=== PATIENT | female | born 1955 | race Caucasian/White ===

== ENCOUNTER 2024-02-17 04:34 | Emergency (ER) | payer OTHER, SELFPAY ==
[2024-02-17 04:38] VITALS: BP 145/82; PULSE 86; RESP 16; TEMP 36.3; O2SAT 95; BMI 40.7
--- NOTE | 2024-02-17 04:44 | ED_ITS ---
HPI - Chest Pain General Time Seen by Provider: 04:45 Date Seen: 02/17/24 Chief Complaint: Chest Pain Stated Complaint: Chest pressure Time Seen by Provider: 02/17/24 04:44 Source: patient, RN notes reviewed and old records reviewed Mode of arrival: ambulatory Limitations: no limitations History of Present Illness HPI narrative: 68-year-old female who comes in today with chest pain. The patient reports chest pressure in the middle of her chest that has been going on for 2 days. No radiation, no shortness of breath, no nausea vomiting. Pain is worse when she l ays down, not change with eating. Has been taking aspirin recently Related Data Previous Rx's ?Medication ?Instructions ?Recorded amoxicillin 875 mg-potassium 1 tab PO BID #20 tabs 07/13/22 clavulanate 125 mg tablet Allergies Allergy/AdvReac Type Severity Reaction Status Date / Time No Known Drug Allergies Allergy Verified 07/13/22 16:47 [facility] Medical History (Updated 07/13/22 @ 16:58 by Anthony Boswell MD) Acute sinusitis ?J01.90 - Acute sinusitis, unspecified (ICD-10) Social History Smoking Status: Never smoker Exam Narrative Exam Narrative: General: Well-developed and well-nourished, no acute distress Head: Atraumatic and normocephalic Eyes: Pupils are equal reactive, extraocular motions intact, conjunctiva clear ENT: External nose and ears are normal, posterior pharynx without erythema or exudate Neck: No midline cervical tenderness, full spontaneous range of motion the neck, trachea midline, no adenopathy Heart: Regular rate and rhythm no murmurs or thrills Lungs: Clear to auscultation bilaterally without wheezes or crackles Abdomen: Soft, nontender, nondistended with active bowel sounds Musculoskeletal: No tenderness, deformity, or edema Neurologic: Awake, alert, and oriented x3, no gross focal neurologic deficits, cranial nerves intact as tested Psych: Mood and affect are appropriate Skin: No rashes Const Vital Signs, click to edit/add: Vital Signs - 24 hr 02/17/24 04:38 02/17/24 05:12 Temperature 97.3 F L Pulse Rate [Left Pulse Oximeter] 86 73 Respiratory Rate 16 16 Blood Pressure [Right Upper Arm] 145/82 H 122/71 Pulse Oximetry 95 93 Oxygen Delivery Method Room Air Room Air Course Course ED Course: Patient seen and examined, prior records reviewed. Patient presents today with substernal chest pressure that has been going on for about 2 days. On exam here, patient appears comfortable, no abdominal or chest tenderness. EKG is reassuring, labs ordered. The EKG independently interpreted by me performed at 4:50 a.m. demonstrates normal sinus rhythm rate 83, no acute ST elevations or depressions, normal intervals, normal axis, QTC 425, WI 152. No prior for comparison. Reevaluation(s) Time of Reevaluation #1: 05:30 Reevaluation #1: Labs ordered and independently interpreted by me with the normal white blood cell count, normal hemoglobin, normal magnesium, normal hepatic panel, normal BNP, negative troponin, normal lipase. Chest x-ray ordered and independently interpreted by me negative for acute intrathoracic findings. Given time since onset of symptoms, single negative troponin is adequate for rule out for NSTEMI. No evidence for STEMI on EKG. No pleuritic chest pain or shortness of breath to suggest pulmonary embolism, chest x-ray negative for findings for pulmonary edema or pneumonia. No abdominal tenderness and normal hepatic panel in normal lipase, no evidence for acute pancreatitis, acute cholecystitis. No vomiting to suggest bowel obstruction. Patient reassured in the emergency department is feeling better, stable for discharge Vital Signs Vital signs: Initial Vital Signs Temperature 97.3 F L 02/17/24 04:38 Temperature Source Temporal Artery Scan 02/17/24 04:38 Pulse Rate 86 02/17/24 04:38 Pulse Rhythm Regular 02/17/24 04:38 Respiratory Rate 16 02/17/24 04:38 Blood Pressure 145/82 H 02/17/24 04:38 Blood Pressure Mean 103 02/17/24 04:38 Blood Pressure Position Sitting 02/17/24 04:38 Pulse Oximetry 95 02/17/24 04:38 Oxygen Delivery Method Room Air 02/17/24 04:38 Vital Signs Temperature 97.3 F L 02/17/24 04:38 Pulse Rate 86 02/17/24 04:38 Respiratory Rate 16 02/17/24 04:38 Blood Pressure 145/82 H 02/17/24 04:38 Pulse Oximetry 95 02/17/24 04:38 Oxygen Delivery Method Room Air 02/17/24 04:38 Temperature 97.3 F L 08/18/24 04:38 Pulse Rate 73 02/17/24 05:12 Respiratory Rate 16 02/17/24 05:12 Blood Pressure 122/71 02/17/24 05:12 Pulse Oximetry 93 02/17/24 05:12 Oxygen Delivery Method Room Air 02/17/24 05:12 Medications Administered Medications: Generic Name Dose Route Start Last Admin Trade Name Codyq PRN Reason Stop Dose Admin Lidocaine/Aluminum/Magnesium/Simeth 30 ml 02/17/24 05:15 02/17/24 05:25 Gi Cocktail (Visc Lido/Antacid) 30 Ml PO 02/17/24 05:16 30 ml ONCE ONE Administration MDM - Chest Pain Lab Data Labs: Lab Results 02/17/24 02/17/24 Range/Units 04:50 04:54 WBC 10.19 (4.50-11.00) K/uL RBC 5.12 (4.00-5.20) m/uL Hgb 15.7 (12.0-16.0) gm/dL Hct 47.5 (33.0-51.0) % MCV 93 (80-100) fL MCH 31 (26-34) pg MCHC 33 (32-36) gm/dL RDW Coeff of Adrian 11.7 (11.5-15.5) % Plt Count 155 (140-440) K/uL Neut % (Auto) 76.7 H (42.0-72.0) % Lymph % (Auto) 14.8 L (20-44) % [place] % (Auto) 7.7 (0.0-11.0) % Eos % (Auto) 0.5 (0.0-7.0) % Baso % (Auto) 0.2 (0.0-3.0) % Neut # (Auto) 7.80 H (1.7-7.0) K/uL Lymph # (Auto) 1.50 (0.90-2.90) K/uL [place] # (Auto) 0.80 (0.00-0.90) K/UL Eos # (Auto) 0.05 (0.00-0.50) K/uL Baso # (Auto) 0.02 (0.00-0.30) K/uL Abs Immat Gran (auto) 0.01 (0.00-0.30) K/uL Imm/Tot Granulo (auto) 0.1 % Magnesium 2.2 (1.5-2.6) mg/dL Total Bilirubin 1.2 (0.1-1.5) mg/dL Direct Bilirubin 0.4 (0.0-0.5) mg/dL AST 35 (12-35) U/L ALT 30 (4-35) U/L Alkaline Phosphatase 67 (40-150) U/L NT-Pro-B Natriuret Pep 326 pg/mL Total Protein 7.3 (6.0-8.3) g/dL Albumin 4.6 (3.3-5.0) g/dL Lipase 52 (23-300) U/L POC Troponin I 0.00 L (0.01-0.04) ng/ml Discharge Plan Discharge Prescriptions: No Action amoxicillin-pot clavulanate 875-125 mg tablet 1 tab PO BID Qty: 20 0RF Follow Up/Referrals: Clara Fine, RUPA [Physician [employer] Rep[employer] Inspector] -
--- NOTE | 2024-02-17 04:50 | CRLHL7_ITS ---
For Patients: As a result of the Cures Act, medical imaging exams and procedure reports are released immediately into your electronic medical record. You may view this report before your referring provider. If you have questions, please contact your health care provider. INDICATION: Chest pressure. TECHNIQUE: Chest 1 views. COMPARISON: None. FINDINGS: Cardiovasculature and mediastinum: Heart size is normal. Unremarkable mediastinum. Lungs and pleural spaces: Lungs are clear. No sign of infiltrate or mass. No sign of pleural effusion. No pneumothorax. Bones and soft tissues: No significant findings. IMPRESSION: No acute or significant findings. Dictated by Marcus Brooks MD @ 02/17/2024 5:21:53 AM (Electronically Signed)
[2024-02-17 05:01] LABS: Basophils Absolute Auto 0.02 K/uL (0.00-0.30); Basophils Percent Auto 0.2 % (0.0-3.0); Eosinophils Absolute Auto 0.05 K/uL (0.00-0.50); Eosinophils Percent Auto 0.5 % (0.0-7.0); Hematocrit 47.5 % (33.0-51.0); Hemoglobin* 15.7 gm/dL (12.0-16.0); Immature Granulocytes Abs Auto 0.01 K/uL (0.00-0.30); Immature Granulocytes Pct Auto 0.1 %; Lymphocytes Percent Auto 14.8 % (20-44); Mean Corpuscular HGB Conc 33 gm/dL (32-36); Mean Corpuscular Hemoglobin 31 pg (26-34); Mean Corpuscular Volume 93 fL (80-100); Monocytes Percent Auto 7.7 % (0.0-11.0); Neutrophils Percent Auto 76.7 % (42.0-72.0); Platelet Count* 155 K/uL (140-440); RDW Coefficient of Variation % 11.7 % (11.5-15.5); Red Blood Count 5.12 m/uL (4.00-5.20); White Blood Count* 10.19 K/uL (4.50-11.00)
[2024-02-17 05:03] LABS: Slide Review Reflex No
[2024-02-17 05:09] LABS: Albumin* 4.6 g/dL (3.3-5.0)
[2024-02-17 05:12] VITALS: BP 122/71; PULSE 73; RESP 16; O2SAT 92; O2SAT 93
[2024-02-17 05:12] LABS: Alkaline Phosphatase* 67 U/L (40-150); Aspartate Amino Transferase* 35 U/L (12-35); Bilirubin Direct* 0.4 mg/dL (0.0-0.5); Bilirubin Total* 1.2 mg/dL (0.1-1.5); Lipase* 52 U/L (23-300); Magnesium* 2.2 mg/dL (1.5-2.6); Total Protein* 7.3 g/dL (6.0-8.3)
[2024-02-17 05:13] VITALS: PULSE 74; O2SAT 92
[2024-02-17 05:13] LABS: Alanine Aminotransferase* 30 U/L (4-35)
[2024-02-17] MEDS: GI COCKTAIL (VISC LIDO/ANTACID) 30 ML PO (05:25)
[2024-02-17 05:26] LABS: NT Pro B Type NatriureticPept* 326 pg/mL
[2024-02-17 05:32] VITALS: BP 126/67
== END 2024-02-17 05:51 | disposition home or self-care (01) ==
PROVIDERS: Emergency Provider Family Medicine
DX: R07.9 Chest pain, unspecified (principal)
CPT/HCPCS: 36415; 71045; 80076; 83690; 83735; 83880; 84484; 85025; 93005; 99284; 99285; A9270